=== PATIENT | male | born 1970 | race Caucasian/White ===

== ENCOUNTER 2016-03-23 15:58 | Emergency (ER) | payer MEDICAID ==
[~2016-03-23] VITALS: Ht 160 cm; Wt 81.6 kg
[~2016-03-23 15:58] MED LIST: BENA10TA2; BENA10TA2 PO
[2016-03-23] MEDS ORDERED: ALBUTEROL FS 2.5 MG/3 ML VIAL.NEB ONE (16:20)
[2016-03-23] MEDS ORDERED: IPRATROPIUM NEB FS 0.5 MG/2.5 ML AMPUL.NEB ONE (16:20)
[2016-03-23] MEDS ORDERED: DEXAMETHASONE SOD PHOSPHATE 4 MG/ML VIAL ONE (16:22)
[2016-03-23] MEDS ORDERED: IPRATROPIUM NEB FS 0.5 MG/2.5 ML AMPUL.NEB NEB ONE (16:30)
[2016-03-23] MEDS ORDERED: ALBUTEROL FS 2.5 MG/3 ML VIAL.NEB NEB ONE (16:30)
[2016-03-23] MEDS ORDERED: DEXAMETHASONE SOD PHOSPHATE 10 MG/ML VIAL IM ONE (16:30)
[2016-03-23 17:05] VITALS: BP 123/70
== END 2016-03-23 17:06 | disposition home or self-care (01) ==
LOC: ER 16:00
DX: J44.1 Chronic obstructive pulmonary disease with (acute) exacerbation (principal); F17.210 Nicotine dependence, cigarettes, uncomplicated; I10 Essential (primary) hypertension; Z88.0 Allergy status to penicillin
CPT/HCPCS: 71010; 93005; 94640; 96372; 99284; A4606; J1100 ×2; Z7610

== ENCOUNTER 2016-05-24 16:42 | Emergency (ER) | payer MEDICAID ==
[~2016-05-24] VITALS: Ht 160 cm; Wt 81.6 kg
[2016-05-24 17:13] VITALS: BP 128/92
== END 2016-05-24 19:55 | disposition home or self-care (01) ==
LOC: EDUNIT# 16:42 → ER 16:44
DX: M54.5 Low back pain (principal); J40 Bronchitis, not specified as acute or chronic; I10 Essential (primary) hypertension; Z88.0 Allergy status to penicillin
CPT/HCPCS: 99281; A4606; Z7610; Z7502

== ENCOUNTER 2016-06-19 16:13 | Emergency (ER) | payer MEDICAID ==
[~2016-06-19] VITALS: Ht 160 cm; Wt 81.6 kg
--- NOTE | 2016-06-19 16:20 | NUR ---
PT CAME IN FOR INTERMITTENT L SIDED CHEST PAIN, PRESSURE LIKE X 3 DAYS WITH HEADACHE. VSS. SKIN WNL. AT FOR EVAL. SAFETY AND COMFORT MEASURES PROVIDED. WILL MONITOR.
--- NOTE | 2016-06-19 16:25 | NUR ---
IV ACCESS STARTED. BLOOD DRAWN FOR LABS. PT MEDICATED ORDERED.
[2016-06-19] MEDS ORDERED: ASPIRIN 325 MG TABLET PO ONE (16:30)
[2016-06-19] MEDS ORDERED: ASPIRIN 325 MG TABLET ONE (16:30)
[2016-06-19 16:36] LABS: BASOPHILS # (AUTO) 0.1 /CMM (0.0-0.2); BASOPHILS % (AUTO) 1.1 % (0.0-2.0); EOSINOPHILS # (AUTO) 0.1 /CMM (0.0-0.7); EOSINOPHILS % (AUTO) 1.2 % (0.0-6.0); HEMATOCRIT 44 % (39-51); HEMOGLOBIN 14.9 g/dL (13.5-17.5); LYMPHOCYTES # (AUTO) 2.8 /CMM (0.8-4.8); LYMPHOCYTES % (AUTO) 38.4 % (20.0-44.0); MEAN CORPUSCULAR HEMOGLOBIN 28 PG (26.0-33.0); MEAN CORPUSCULAR HGB CONC 34 g/dl (31.0-36.0); MEAN CORPUSCULAR VOLUME 84 fL (80-96); MONOCYTES # (AUTO) 0.4 /CMM (0.1-1.30); NEUTROPHILS # (AUTO) 3.9 /CMM (1.8-8.9); NEUTROPHILS % (AUTO) 54.3 % (43.0-81.0); PLATELET COUNT (AUTO) 198 /CMM (150-450); RDW COEFFICIENT OF VARIATION 12.6 (11.5-15.0); RED BLOOD CELL COUNT(AUTO) 5.27 MIL/uL (4.5-6.0); WHITE BLOOD COUNT (AUTO) 7.3 K/uL (4.3-11.0)
--- NOTE | 2016-06-19 16:38 | NUR ---
XRAY DONE AT BS.
[2016-06-19 16:45] LABS: CALCIUM, SERUM 8.4 mg/dL (8.5-10.1); CARBON DIOXIDE 31 mmol/L (21-32); CHLORIDE 105 mmol/L (98-107); CREATININE 1.1 mg/dL (0.6-1.3); GFR 72 mL/min (>60); GLUCOSE 112 mg/dL (74-106); POTASSIUM 4.3 mmol/L (3.5-5.1); SODIUM SERUM 144 mmol/L (136-145); UREA NITROGEN, BLOOD 18 mg/dL (7-18)
[2016-06-19 16:49] LABS: INR 0.9 (0.87-1.13); PROTHROMBIN TIME 9.4 SECS (9.5-12.7)
[2016-06-19 16:55] LABS: TROPONIN I < 0.017 ng/mL (0.00-0.056)
--- NOTE | 2016-06-19 17:50 | NUR ---
Patient is resting comfortably in bed with eyes closed. Easily aroused. VSS
--- NOTE | 2016-06-19 20:03 | NUR ---
PT RESTING IN ER BED, NAD NOTED, PT IS ON CARDIA MONITOR, WILL CONTINUE TO MONITOR
--- NOTE | 2016-06-19 20:19 | NUR ---
[employer] SALES ASSISTANT AT BED SIDE FOR BLOOD DRAW
[2016-06-19 20:51] VITALS: BP 133/64
--- NOTE | 2016-06-19 20:51 | NUR ---
Patient discharged to home in stable condition. Written and verbal after care instructions given. Patient verbalizes understanding of instruction.IV removed. Catheter intact and site benign. Pressure and 4x4 applied to site. No bleeding noted. PT ambulatory with a steady gait VITAL SIGNS WITHIN NORMAL LIMITS.
== END 2016-06-19 21:02 | disposition home or self-care (01) ==
LOC: ER 16:15
DX: R07.89 Other chest pain (principal); I10 Essential (primary) hypertension; Z88.0 Allergy status to penicillin
CPT/HCPCS: 36415; 71010-TC; 80048-TC; 84484-TC; 85025-TC; 85730-TC; A4606; Z7610

== ENCOUNTER 2017-04-15 09:26 | Emergency (ER) | payer MEDICAID ==
[~2017-04-15] VITALS: Ht 162.6 cm; Wt 82.1 kg
[2017-04-15 09:58] VITALS: BP 143/68
[2017-04-15] MEDS ORDERED: HYDROCODONE BIT/HOMATROPINE 5 ML UDC PO ONE (10:00)
[2017-04-15] MEDS ORDERED: BENZONATATE 100 MG CAPSULE PO PRN (10:00)
[2017-04-15] MEDS ORDERED: ONDANSETRON 4 MG TAB.RAPDIS PO ONE (10:00)
[2017-04-15] MEDS ORDERED: ONDANSETRON 4 MG TAB.RAPDIS ONE (10:13)
[2017-04-15] MEDS ORDERED: HYDROCODONE BIT/HOMATROPINE 5 ML UDC ONE (10:13)
== END 2017-04-15 11:17 | disposition home or self-care (01) ==
LOC: ER 09:27
DX: R07.89 Other chest pain (principal); R05 Cough; I10 Essential (primary) hypertension; Z88.0 Allergy status to penicillin
CPT/HCPCS: 71045; 93005; 99284; A4606; Q0162; Z7610

== ENCOUNTER 2017-10-28 17:36 | Emergency (ER) | payer MEDICAID ==
[~2017-10-28] VITALS: Ht 160 cm; Wt 83.5 kg
[2017-10-28 17:36] VITALS: BP 139/93
[~2017-10-28 17:36] MED LIST changes: -BENA10TA2; -BENA10TA2 PO; +BENA10TA9; +BENA10TA9 PO
[2017-10-28] MEDS ORDERED: IBUPROFEN 600 MG TABLET PO ONE (19:30)
--- NOTE | 2017-10-28 19:35 | NUR ---
PATIENT SIGNED D/C PAPER. WHEN RETRIEVING MEDICINE FOR THE PATIENT I NOTICED HE WAS WALKING OUT THE DOOR AND SAID "IT IS OKAY". WILL TAKE OUT OF SYSTEM
== END 2017-10-28 19:36 | disposition home or self-care (01) ==
LOC: ER 17:38
DX: L72.3 Sebaceous cyst (principal); E78.00 Pure hypercholesterolemia, unspecified; I10 Essential (primary) hypertension; F17.200 Nicotine dependence, unspecified, uncomplicated; Z88.1 Allergy status to other antibiotic agents
CPT/HCPCS: 99282; A4606; Z7610

== ENCOUNTER 2018-05-09 14:22 | Emergency (ER) | payer MEDICAID ==
[~2018-05-09] VITALS: Ht 160 cm; Wt 79.8 kg
--- NOTE | 2018-05-09 15:00 | NUR ---
PT IV LINE ESTABLISHED, LABS DRAWNED AND SENT TO LAB.
--- NOTE | 2018-05-09 15:18 | NUR ---
DR. MURRAY AT BEDSIDE FOR EVAL.
[2018-05-09] MEDS ORDERED: IBUPROFEN 600 MG TABLET PO ONE (16:55)
[2018-05-09] MEDS ORDERED: ACETAMINOPHEN 325 MG TABLET ONE (16:55)
[2018-05-09 16:58] VITALS: BP 134/84
--- NOTE | 2018-05-09 16:59 | NUR ---
TYLENOL 650MG PO AND MOTRIN 600MG PO GIVEN VERBAL ORDER BY DR. MURRAY.
[2018-05-09] MEDS: ACETAMINOPHEN 325 MG TABLET PO ONE (17:28)
[2018-05-09] MEDS: IBUPROFEN 600 MG TABLET PO ONE (17:28)
--- NOTE | 2018-05-09 18:11 | NUR ---
Patient discharged to home in stable condition. Written and verbal after care instructions given. Patient verbalizes understanding of instruction.
== END 2018-05-09 18:12 | disposition home or self-care (01) ==
LOC: ER 14:32
DX: B34.9 Viral infection, unspecified (principal); I10 Essential (primary) hypertension; E78.00 Pure hypercholesterolemia, unspecified; Z88.0 Allergy status to penicillin; Z79.899 Other long term (current) drug therapy
CPT/HCPCS: 87400

== ENCOUNTER 2018-06-12 13:30 | Emergency (ER) | payer MEDICAID ==
[~2018-06-12] VITALS: Ht 160 cm; Wt 83.5 kg
--- NOTE | 2018-06-12 13:39 | NUR ---
patient brought self in c/o chest pressure and intermittent dizziness x3 days but came in due to increased pain and dizziness today. patient denies radiation. n/v/chills. intermittent palpitations. hx htn only per md. md at bedside
[2018-06-12 13:54] LABS: BASOPHILS # (AUTO) 0.1 /CMM (0.0-0.2); BASOPHILS % (AUTO) 0.8 % (0.0-2.0); EOSINOPHILS % (AUTO) 0.8 % (0.0-6.0); HEMATOCRIT 46 % (39-51); LYMPHOCYTES # (AUTO) 2.5 /CMM (0.8-4.8); LYMPHOCYTES % (AUTO) 35.6 % (20.0-44.0); MEAN CORPUSCULAR HGB CONC 35 g/dl (31.0-36.0); MEAN CORPUSCULAR VOLUME 85 fL (80-96); MONOCYTES # (AUTO) 0.3 /CMM (0.1-1.30); MONOCYTES % (AUTO) 3.9 % (2.0-12.0); NEUTROPHILS # (AUTO) 4.2 /CMM (1.8-8.9); NEUTROPHILS % (AUTO) 58.9 % (43.0-81.0); PLATELET COUNT (AUTO) 211 /CMM (150-450); RED BLOOD CELL COUNT(AUTO) 5.38 MIL/uL (4.5-6.0); WHITE BLOOD COUNT (AUTO) 7.1 K/uL (4.3-11.0)
[2018-06-12 14:01] LABS: CALCIUM, SERUM 8.6 mg/dL (8.5-10.1); CARBON DIOXIDE 28 mmol/L (21-32); CHLORIDE 104 mmol/L (98-107); CREATININE 0.9 mg/dL (0.6-1.3); GLUCOSE 144 mg/dL (74-106); SODIUM SERUM 139 mmol/L (136-145); UREA NITROGEN, BLOOD 13 mg/dL (7-18)
[2018-06-12] MEDS ORDERED: ASPI-605 PO (14:01)
--- NOTE | 2018-06-12 14:25 | NUR ---
IV removed. Catheter intact and site benign. Pressure and 4x4 applied to site. No bleeding noted.
[2018-06-12 14:28] VITALS: BP 138/70
--- NOTE | 2018-06-12 14:29 | NUR ---
Patient discharged to home in stable condition. Written and verbal after care instructions given. Patient verbalizes understanding of instruction.
== END 2018-06-12 14:32 | disposition home or self-care (01) ==
LOC: ER 13:32
DX: R07.89 Other chest pain (principal); I10 Essential (primary) hypertension; E78.00 Pure hypercholesterolemia, unspecified; F17.200 Nicotine dependence, unspecified, uncomplicated; Z79.82 Long term (current) use of aspirin; Z88.0 Allergy status to penicillin
CPT/HCPCS: 36415; 71045-TC; 80048-TC; 84484-TC; 85025-TC

== ENCOUNTER 2018-12-17 18:35 | Emergency (ER) | payer MEDICAID ==
[~2018-12-17] VITALS: Ht 160 cm; Wt 81.6 kg
[~2018-12-17 18:35] MED LIST changes: +ASPI-605 PO; +BENA10TA11 PO; -BENA10TA9; -BENA10TA9 PO
--- NOTE | 2018-12-17 18:53 | NUR ---
PATIENT BIB DAUGHTER, C/O COUGH x 3 DAYS, AFEBRILE. O2 SAT 99% IN ROOM AIR. CONNECTED TO MONITOR. WILL CONTINUE TO MONITOR ACCORDINGLY
[2018-12-17] MEDS ORDERED: ALBUTEROL FS 2.5 MG/3 ML VIAL.NEB NEB ONE (19:00)
[2018-12-17] MEDS ORDERED: IPRATROPIUM NEB FS 0.5 MG/2.5 ML AMPUL.NEB NEB ONE (19:00)
[2018-12-17] MEDS ORDERED: predniSONE 20 MG TABLET PO ONE (19:00)
[2018-12-17] MEDS ORDERED: predniSONE 20 MG TABLET ONE (19:14)
[2018-12-17] MEDS ORDERED: IPRATROPIUM NEB FS 0.5 MG/2.5 ML AMPUL.NEB ONE (19:23)
[2018-12-17] MEDS ORDERED: ALBUTEROL FS 2.5 MG/3 ML VIAL.NEB ONE (19:23)
[2018-12-17 21:04] VITALS: BP 130/78
--- NOTE | 2018-12-17 21:04 | NUR ---
Patient discharged to home in stable condition. Written and verbal after care instructions given. Patient verbalizes understanding of instruction.
== END 2018-12-17 21:04 | disposition home or self-care (01) ==
LOC: ER 18:38
DX: J06.9 Acute upper respiratory infection, unspecified (principal); J98.01 Acute bronchospasm; I10 Essential (primary) hypertension; E78.5 Hyperlipidemia, unspecified; E78.00 Pure hypercholesterolemia, unspecified; F17.200 Nicotine dependence, unspecified, uncomplicated; Z88.0 Allergy status to penicillin; Z79.82 Long term (current) use of aspirin; Z79.899 Other long term (current) drug therapy
CPT/HCPCS: 71045; 94640; 99283; J7512

== ENCOUNTER 2022-06-18 19:32 | Emergency (ER) | payer MEDICAID ==
[~2022-06-18] VITALS: Ht 160 cm; Wt 81.6 kg
[~2022-06-18 19:32] MED LIST changes: -BENA10TA11 PO; +BENA10TA74 PO
--- NOTE | 2022-06-18 20:14 | NUR ---
BIBFAMILY FRM HOME C/O DIZZY AND HEADACHE X THIS MORNING 3/10 PAIN. NO FOCAL NEURO DEFECITS. ORIENTED X4 PLACED ON MONITOR AND V/S WNL
[2022-06-18] MEDS ORDERED: IV NS 0.9% 1,000 ML BAG IV ONE (20:30)
[2022-06-18 20:39] LABS: BASOPHILS % (AUTO) 0.7 % (0.0-2.0); EOSINOPHILS % (AUTO) 1.3 % (0.0-6.0); HEMATOCRIT 47 % (39-51); HEMOGLOBIN 15.9 g/dL (13.5-17.5); LYMPHOCYTES # (AUTO) 2.9 K/uL (0.8-4.8); LYMPHOCYTES % (AUTO) 39.6 % (20.0-44.0); MEAN CORPUSCULAR HGB CONC 34 g/dl (31.0-36.0); MEAN CORPUSCULAR VOLUME 86 fL (80-96); MONOCYTES # (AUTO) 0.5 K/uL (0.1-1.30); MONOCYTES % (AUTO) 6.3 % (2.0-12.0); NEUTROPHILS # (AUTO) 3.8 K/uL (1.8-8.9); NEUTROPHILS % (AUTO) 52.1 % (43.0-81.0); PLATELET COUNT (AUTO) 206 K/uL (150-450); RED BLOOD CELL COUNT(AUTO) 5.48 MIL/uL (4.5-6.0); WHITE BLOOD COUNT (AUTO) 7.2 K/uL (4.3-11.0)
--- NOTE | 2022-06-18 20:47 | NUR ---
TAKEN TO CT
[2022-06-18 20:48] LABS: CALCIUM, SERUM 9.4 mg/dL (8.5-10.1); CARBON DIOXIDE 28 mmol/L (21-32); CHLORIDE 104 mmol/L (98-107); GLUCOSE 123 mg/dL (74-106); SODIUM SERUM 139 mmol/L (136-145); UREA NITROGEN, BLOOD 23 mg/dL (7-18)
[2022-06-18 20:55] LABS: ALANINE AMINOTRANSFERASE 32 U/L (12-78); ALBUMIN 3.9 g/dL (3.4-5.0); ALKALINE PHOSPHATASE 112 U/L (46-116); ASPARTATE AMINOTRANSFERASE 28 U/L (15-37); BILIRUBIN,TOTAL 0.4 mg/dL (0.2-1.0); TOTAL PROTEIN, SERUM 7.4 g/dL (6.4-8.2)
--- NOTE | 2022-06-18 21:32 | NUR ---
Patient discharged to home in stable condition. Written and verbal after care instructions given. Patient verbalizes understanding of instruction.IV removed. Catheter intact and site benign. Pressure and 4x4 applied to site. No bleeding noted.
[2022-06-18 21:54] VITALS: BP 132/89
== END 2022-06-18 21:55 | disposition home or self-care (01) ==
LOC: ER 19:40
DX: E86.0 Dehydration (principal); R42 Dizziness and giddiness; E78.00 Pure hypercholesterolemia, unspecified; I10 Essential (primary) hypertension; F17.200 Nicotine dependence, unspecified, uncomplicated; Z79.899 Other long term (current) drug therapy; Z88.0 Allergy status to penicillin
CPT/HCPCS: 99284; 96360; 70450; 93005; 85025; 80048; 80076; 36415; 84484; J7030; A4223

== ENCOUNTER → 2023-08-22 | Emergency (ER) | payer OTHER ==
[~2023-08-22] VITALS: Ht 162.6 cm; Wt 83.9 kg
[~2023-08-22] MED LIST changes: +ACET-2605 PO; +ACET-868 PO; +ACETAMINOPHEN ES 500 MG TABLET ONE; +CYCL5TAB PO; +KETO10TA2 PO
[2023-08-22 21:10] VITALS: BP 138/80; TEMP 98.1; O2SAT 97
[2023-08-22] MEDS: ACETAMINOPHEN ES 500 MG TABLET PO ONE (22:22)
== END | disposition home or self-care (01) ==
LOC: ER 19:58
DX: S09.8XXA Other specified injuries of head, initial encounter (principal); R42 Dizziness and giddiness; I10 Essential (primary) hypertension; E78.00 Pure hypercholesterolemia, unspecified; F17.200 Nicotine dependence, unspecified, uncomplicated; Z88.0 Allergy status to penicillin; W22.8XXA Striking against or struck by other objects, initial encounter; Y93.89 Activity, other specified; Y92.59 Other trade areas as the place of occurrence of the external cause; Y99.8 Other external cause status

== ENCOUNTER 2024-01-05 19:18 | Emergency (ER) | payer OTHER ==
[~2024-01-05] VITALS: Ht 162.6 cm; Wt 85.3 kg
[~2024-01-05 19:18] MED LIST changes: -ACETAMINOPHEN ES 500 MG TABLET ONE
[2024-01-05 20:28] LABS: BASOPHILS # (AUTO) 0.1 K/uL (0.0-0.2); BASOPHILS % (AUTO) 0.8 % (0.0-2.0); EOSINOPHILS # (AUTO) 0.1 K/uL (0.0-0.7); HEMATOCRIT 44 % (39-51); HEMOGLOBIN 15.6 g/dL (13.5-17.5); LYMPHOCYTES # (AUTO) 3.4 K/uL (0.8-4.8); LYMPHOCYTES % (AUTO) 44.3 % (20.0-44.0); MEAN CORPUSCULAR HEMOGLOBIN 30 PG (26.0-33.0); MEAN CORPUSCULAR HGB CONC 35 g/dl (31.0-36.0); MEAN CORPUSCULAR VOLUME 86 fL (80-96); MONOCYTES # (AUTO) 0.5 K/uL (0.1-1.30); MONOCYTES % (AUTO) 6.1 % (2.0-12.0); NEUTROPHILS # (AUTO) 3.6 K/uL (1.8-8.9); NEUTROPHILS % (AUTO) 46.8 % (43.0-81.0); PLATELET COUNT (AUTO) 218 K/uL (150-450); RED BLOOD CELL COUNT(AUTO) 5.18 MIL/uL (4.5-6.0); RED CELL DISTRIBUTION WIDTH 13.7 % (11.5-15.0); WHITE BLOOD COUNT (AUTO) 7.6 K/uL (4.3-11.0)
[2024-01-05 20:53] LABS: CALCIUM, SERUM 9.1 mg/dL (8.5-10.1); CARBON DIOXIDE 30 mmol/L (21-32); CHLORIDE 104 mmol/L (98-107); CREATININE 1.1 mg/dL (0.6-1.3); GLUCOSE 115 mg/dL (74-106); POTASSIUM 3.9 mmol/L (3.5-5.1); SODIUM SERUM 141 mmol/L (136-145); UREA NITROGEN, BLOOD 19 mg/dL (7-18)
[2024-01-05 22:42] VITALS: BP 113/71; TEMP 98.1; O2SAT 97
== END 2024-01-05 22:43 | disposition home or self-care (01) ==
LOC: ER 19:53
DX: R07.89 Other chest pain (principal); E78.00 Pure hypercholesterolemia, unspecified; I10 Essential (primary) hypertension; F17.200 Nicotine dependence, unspecified, uncomplicated; Z79.82 Long term (current) use of aspirin; Z88.0 Allergy status to penicillin
CPT/HCPCS: 36415; 71045-TC; 80048-TC; 84484-TC; 85025-TC

== ENCOUNTER 2024-09-20 07:35 | Emergency (ER) | payer OTHER ==
[~2024-09-20] VITALS: Ht 160 cm; Wt 83.9 kg
[2024-09-20 10:58] VITALS: TEMP 99.1
[2024-09-20] MEDS ORDERED: IBUP-1490 PO (13:25)
[2024-09-20] MEDS ORDERED: ONDA4TAB5 PO (13:33)
[2024-09-20 13:45] VITALS: BP 110/78; O2SAT 97
== END 2024-09-20 13:41 | disposition home or self-care (01) ==
LOC: ER 07:38
DX: U07.1 COVID-19 (principal); I10 Essential (primary) hypertension; F17.200 Nicotine dependence, unspecified, uncomplicated; E78.00 Pure hypercholesterolemia, unspecified; Z79.82 Long term (current) use of aspirin; Z88.0 Allergy status to penicillin; Z79.899 Other long term (current) drug therapy
CPT/HCPCS: 86403-TC; 87070-TC

== ENCOUNTER 2025-02-03 17:17 | Emergency (ER) | payer MEDICAID, OTHER ==
[~2025-02-03] VITALS: Ht 162.6 cm; Wt 81.6 kg
[~2025-02-03 17:17] MED LIST changes: +IBUP-1490 PO; +ONDA4TAB5 PO
[2025-02-03] MEDS ORDERED: ACET-2030 PO (18:55)
[2025-02-03] MEDS ORDERED: CELE200C PO (18:55)
[2025-02-03 19:24] VITALS: BP 130/75; TEMP 98; O2SAT 99
[2025-02-03] MEDS ORDERED: LIDO30AD10 TP (19:50)
== END 2025-02-03 19:25 | disposition home or self-care (01) ==
LOC: ER 17:24
DX: M19.012 Primary osteoarthritis, left shoulder (principal); M19.022 Primary osteoarthritis, left elbow; E78.00 Pure hypercholesterolemia, unspecified; F17.200 Nicotine dependence, unspecified, uncomplicated; I11.9 Hypertensive heart disease without heart failure; Z79.1 Long term (current) use of non-steroidal anti-inflammatories (NSAID); Z79.82 Long term (current) use of aspirin; Z88.0 Allergy status to penicillin
CPT/HCPCS: 73030-TC; 73080-TC